=== PATIENT | female | born 1965 | race Caucasian/White ===

== ENCOUNTER 2017-06-01 14:27 | Emergency (ER) | payer BC ==
[~2017-06-01] VITALS: Ht 154.9 cm; Wt 95.9 kg
[2017-06-01 18:28] VITALS: BP 136/69
== END 2017-06-01 18:30 | disposition home or self-care (01) ==
LOC: EME 14:27
DX: S00.03XA Contusion of scalp, initial encounter (principal); M54.2 Cervicalgia; M25.511 Pain in right shoulder; W17.89XA Other fall from one level to another, initial encounter
CPT/HCPCS: 70450; 99281; 99284

== ENCOUNTER 2018-03-21 12:02 | Emergency (ER) | payer OTHER, BC ==
[~2018-03-21] VITALS: Ht 154.9 cm; Wt 94.1 kg
[2018-03-21] MEDS ORDERED: FLEXERIL10 MG PO (14:14)
[2018-03-21] MEDS ORDERED: MEDROL DOSEPAK4 MG PO (14:14)
[2018-03-21] MEDS ORDERED: NORCO 5/3251 TABLET PO (14:14)
[2018-03-21 14:38] VITALS: BP 127/63
== END 2018-03-21 14:39 | disposition home or self-care (01) ==
LOC: EME 12:02
DX: M54.16 Radiculopathy, lumbar region (principal); Z88.2 Allergy status to sulfonamides
CPT/HCPCS: 72100; 99281; 99284; J2270; J7512